=== PATIENT | male | born 1960 | race Caucasian/White ===

== ENCOUNTER 2017-06-20 09:42 | Emergency (ER) | payer BC ==
--- NOTE | 2017-06-20 11:43 | ERNOTE ---
Lower Extremity HPI - Narrative Date of Service: 06/20/17 - General Lower Extremities Pain: ankle: left, other: left - L. heel Time Seen by Provider: 06/20/17 11:35 Source: patient Exam Limitations: no limitations - Immun/Allergies/Home Medications Immunizations: IMMUNIZATION HX History of Influenza Vaccine No Hx Pneumococcal Vaccination No Allergies/Adverse Reactions: Allergies Allergy/AdvReac Type Severity Reaction Status Date / Time No Known Drug Allergies Allergy Verified 06/20/17 10:01 Home Medications: HOME MEDICATIONS Atenolol 100 mg PO DAILY 09/22/12 [Last Taken Unknown] Lisinopril [Zestril] 20 mg PO DAILY 09/22/12 [Last Taken Unknown] - Pain Score Pain Score #1 Pain Score: 5 - History of Present Illness Narrative: 56yo, M, presents to the ER for evaluation of L. ankle injury. He reports he rolled his ankle 06/13/17, noted mild ankle and foot pain over the week. 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 On 06/18/17, he noted to have a bump on the back of his heel, increased pain and swelling. He had been up on his feet a lot over the weekend, while hosting a family reunion. Pain was so increased with ambulation that today he began using crutches. Date (Duration): 06/13/17 Occurred: last week Location of Incident: home Method of Injury: Reports: twisted Loss of Consciousness: Reports: no loss of consciousness Modifying Factors - (Improves): Reports: pain medication - NSAIDs (mild relief) , rest Modifying Factors - (Worsens): Reports: movement - weight bearing, other - touching the foot Other Injuries: Reports: none Subsequent Symptoms: Denies: numbness Review of Systems - Review of Systems Constitutional: Absent: fever, chills, malaise Gastrointestinal/Abdominal: Absent: nausea, vomiting Musculoskeletal: Present: joint pain - L. ankle, joint swelling - L. ankle Skin: Present: change in color - ecchymosis Neurological: Absent: numbness - Patient's Past Medical History Patient History - Medical: No pertinent hx Patient History - Cardiac/Respiratory: Hypertension, Hyperlipidemia Patient History - Cancer: No Hx of Cancer Patient History - Surgical Procedures: Cataracts Patient History - Other: None - Social History Living Situations: home Psych History: No pertinent hx Alcohol Use: none Drug Use: none - Immunizations Hx Pneumococcal Vaccination: No History of Influenza Vaccine: No Physical Exam - Physical Exam General Appearance: Present: wd/wn, alert, no apparent distress Respiratory: Present: no respiratory distress, normal breath sounds. Absent: crackles, rhonchi, wheezing Cardiovascular/Chest: Present: regular rate, rhythm, no murmur Extremity Exam: Present: normal range of motion - pain increases with dorsiflexion, bony tenderness - L. lateral ankle and along nodule L. posterior heel and mild tenderness along base achilles tendon, joint swelling - L. lateral ankle, other - L. lateral ankle edema. Absent: calf tenderness Neurological Exam: Present: alert, oriented, normal mood/affect ED Progress - Date and Time Seen: Date and Time: 06/20/17 12:[address] Barba re: exam findings and xray results. Recommends rest, ice, splinting and to f/u next week if no improvement with conservative measures. May use crutches as needed for pain. Reviewed with pt and spouse. He verbalized understanding. Advised he may switch to heel cup when he returns to work. He works at [employer] and requires a lot of stair use, ambulation and heavy lifting. Provider excuse off work until Tuesday06/27/17 - Vital Signs Patient's Vital Signs:: I have reviewed the patient's vital signs. Vital Signs: Vital Signs 06/20/17 06/20/17 09:57 11:15 Temperature 37.0 C Pulse Rate 77 72 Respiratory 12 14 Rate Blood Pressure 158/99 155/94 O2 Sat by Pulse 99 99 Oximetry - Progress/Reassessment Chief Complaint: Ankle Injury/ Pain Progress:: Improved - notes improvement of pain with aircast splint in place Departure Clinical Impression: Achilles tendinitis of left lower extremity Ankle pain, left Qualifiers: Chronicity: acute Qualified Code(s): M25.572 - Pain in left ankle and joints of left foot Heel spur Qualifiers: Laterality: left Qualified Code(s): M77.32 - Calcaneal spur, left foot - Departure Disposition: Home self-care Condition: Good Instructions: Tendinitis, [id number] Additional Instructions: Wear ankle splint for the next several days, may discontinue when able to bear weight without pain May use crutches as needed for pain, until able to bear weight with splint without pain Rest, ice, elevate foot Dr. Barba requests you call to schedule follow up next week, if symptoms not improving with conservative measures. Referrals: Castro Colorado MD [Primary Care Provider] - Ravi Barba MD [Staff Physician] -
[2017-06-20] MEDS ORDERED: IBUPROFEN 400 MG TABLET PO ONE (11:53)
[2017-06-20] MEDS ORDERED: IBUPROFEN 400 MG TABLET ONE (12:00)
[2017-06-20 17:26] VITALS: BP 145/88
== END 2017-06-20 12:50 | disposition home or self-care (01) ==
LOC: ER 09:42
DX: M76.62 Achilles tendinitis, left leg (principal); M25.572 Pain in left ankle and joints of left foot; M77.32 Calcaneal spur, left foot; I10 Essential (primary) hypertension